=== PATIENT | male | born 1945 | race Caucasian/White ===

== ENCOUNTER → 2016-07-25 | Outpatient (CLI) | payer BC, MEDICARE ==
--- NOTE | 2016-07-28 05:38 | MRI ---
Procedure: MR LUMBAR SPINE WITHOUT IV CONTRAST Exam Date: 07/25/2016 9:58 AM CDT Ordering Provider: DAGO PADILLA Clinical Indication: RADICULOPATHY back pain that radiates down the left leg. Comparison: None Technique: Multiplanar, multisequence MR images of the lumbar spine were obtained. Findings: No evidence of vertebral body compression deformity or acute fracture. Degenerative disc changes and disc space height loss greatest at L3-L4 and L4-L5. Spinal cord terminates at the mid L1 level and is normal in signal morphology. Cauda equina separate appropriately. T12-L1: Broad-based disc bulge with mild facet arthrosis. There is mild right neural foraminal stenosis. Spinal canal and left neural foramen are patent. L1-L2: Bilateral facet arthrosis with trace disc bulge. No spinal canal stenosis. No foraminal stenosis. L2-L3: Broad-based disc bulge with moderate facet arthrosis and ligamentum flavum hypertrophy. No significant spinal canal stenosis. Bilateral neural foramina are patent. L3-L4: Large broad-based disc bulge with superimposed 1.0 x 0.6 cm right subarticular recess disc extrusion. This extends cephalad to the disc space approximately 9 mm. This is best measured on axial image 15 and parasagittal image nine. This results in severe right subarticular lateral recess stenosis. Overall severe spinal canal stenosis is also present. There is buckling of the cauda equina proximally and straightening distally. There is advanced facet arthrosis and advanced ligamentum flavum hypertrophy as well. There is [id number] bilateral neural foraminal stenosis proximally. L4-L5: Trace broad-based disc bulge with moderate facet arthrosis and ligamentum flavum hypertrophy. There is only overall mild spinal canal stenosis at there is moderate right greater than left subarticular recess narrowing. There is moderate right neural foraminal stenosis. No left-sided neural foraminal stenosis. L5-S1: Circumferential disc bulge with mild facet arthrosis. No stenosis. Prevertebral and paravertebral soft tissues are unremarkable. Millimetric simple cyst within the left kidney. Impression: 1.Multilevel/multifactorial lumbar degenerative changes with large cephalad disc extrusion at L3-L4 and severe spinal canal and subarticular recess stenosis. See full discussion above. 2. Millimetric simple cyst within the lower pole the left kidney. Electronically signed by: Rigo Pedersen MD 07/28/2016 5:37 AM CDT
== END | disposition home or self-care (01) ==
LOC: MRI 09:17
PROVIDERS: ATTEND Family Medicine
DX: M54.16 Radiculopathy, lumbar region (principal)